=== PATIENT | male | born 1980 | race Caucasian/White ===

== ENCOUNTER 2017-08-08 11:15 | Emergency (ER) | payer OTHER, MEDICAID ==
[~2017-08-08] VITALS: Ht 170.2 cm; Wt 86.0 kg
[2017-08-08] MEDS ORDERED: KETOROLAC 30MG/ML VIAL IM ONE (11:45)
[2017-08-08] MEDS ORDERED: ALBUTEROL (0.083%) 2.5MG/3ML NEB HHN STA (11:50)
[2017-08-08] MEDS ORDERED: IPRATROPIUM BROMIDE (0.02%) 0.5MG/2.5ML NEB HHN STA (11:50)
[2017-08-08] MEDS ORDERED: PREDNISONE 20MG TABLET PO STA (11:50)
[2017-08-08 15:34] VITALS: BP 122/76
== END 2017-08-08 15:37 | disposition home or self-care (01) ==
LOC: ER 13:32
DX: J40 Bronchitis, not specified as acute or chronic (principal); R03.0 Elevated blood-pressure reading, without diagnosis of hypertension
CPT/HCPCS: 71010; 94640; 99283; J7512; J7611

== ENCOUNTER 2017-09-16 17:38 | Emergency (ER) | payer OTHER, MEDICAID ==
[~2017-09-16] VITALS: Ht 170.2 cm; Wt 87.3 kg
[~2017-09-16 17:38] MED LIST: ALBU2.5V13 IH
[2017-09-16 21:10] VITALS: BP 125/78
== END 2017-09-16 22:10 | disposition left against medical advice (07) ==
LOC: ER 18:18
DX: R06.02 Shortness of breath (principal); Z53.21 Procedure and treatment not carried out due to patient leaving prior to being seen by health care provider